=== PATIENT | female | born 1970 | race African-American/Black ===

== ENCOUNTER 2018-01-20 21:01 | Inpatient (IN) | payer OTHER ==
[2018-01-20 21:17] VITALS: BMI 39.1
--- NOTE | 2018-01-20 22:33 | HP ---
CIWA Score - CIWA Score Nausea/Vomitin Muscle Tremors: 3 Anxiety: 4-Mod. Anxious/Guarded Agitation: 1-Slight > Activity Paroxysmal Sweats: No Perspiration Orientation: 0-Oriented Tacttile Disturbances: 0-None Auditory Disturbances: 0-None Visual Disturbances: 0-None Headache: 3-Moderate CIWA-Ar Total Score: 13 Admission ROS S - HPI Chief Complaint: Alcohol withdrawal symptoms Allergies/Adverse Reactions: Allergies Allergy/AdvReac Type Severity Reaction Status Date / Time No Known Allergies Allergy Verified 01/21/18 00:15 History of Present Illness: 47 years old female with a long history of alcohol dependence, was sober for about 3 years and relapsed 2 years later is seeking admission to detox. Patient has been in Rehab. at [facility] but has never been to detox. This is her first detox. She has medical history of HTN, anemia, asthma, hypothyroidism , DM, Hypercholesterolemia and depression. She denies suicide attempt and suicidal ideation at this time. Exam Limitations: No Limitations - Ebola screening Have you traveled outside of the country in the last 21 days: No Have you had contact with anyone from an Ebola affected area: No Have you been sick,other than usual withdrawal symptoms: No Do you have a fever: No - Review of Systems Constitutional: Chills, Loss of Appetite, Malaise, Night Sweats, Changes in sleep EENT: reports: Other (uses reading glasses) Respiratory: reports: No Symptoms reported Cardiac: reports: No Symptoms Reported GI: reports: Nausea, Poor Appetite, Abdominal cramping : reports: No Symptoms Reported Musculoskeletal: reports: Back Pain, Muscle Pain, Muscle Weakness Integumentary: reports: Dryness, Flushing Neuro: reports: Tingling, Tremors Endocrine: reports: No Symptoms Reported Hematology: reports: No Symptoms Reported Psychiatric: reports: Orientated x3, Agitated, Anxious Other Systems: Reviewed and Negative Patient History - Patient Medical History Hx Anemia: Yes (Ferrous sulfate) Hx Asthma: Yes (Albuterol) Hx Chronic Obstructive Pulmonary Disease (COPD): No Hx Cancer: No Hx Cardiac Disorders: Yes (Heart Bypass 2014) Hx Congestive Heart Failure: No Hx Hypertension: Yes (Clonidine, amlodipine, Lisinopril, lasix) Hx Hypercholesterolemia: Yes (Lipitor) Hx Pacemaker: No HX Cerebrovascular Accident: No Hx Seizures: No Hx Dementia: No Hx Diabetes: Yes (Not on medication) Hx Gastrointestinal Disorders: Yes (GASTRIC BYPASS IN 2010) Hx Liver Disease: No Hx Genitourinary Disorders: No Hx Sexually Transmitted Disorders: No Hx Renal Disease (ESRD): No Hx Thyroid Disease: Yes (Hypothyroid- Not on medication) Hx Human Immunodeficiency Virus (HIV): No Hx Hepatitis C: No Hx Depression: Yes (ekaterina Cao) Hx Suicide Attempt: No (Denies suicidal ideation at this time) Hx Schizophrenia: No - Patient Surgical History Past Surgical History: Yes Hx Neurologic Surgery: No Hx Cataract Extraction: No Hx Cardiac Surgery: No Hx Lung Surgery: No Hx Breast Surgery: No Hx Breast Biopsy: No Hx Abdominal Surgery: Yes (s/p lap gastric bypass) Hx Appendectomy: No Hx Cholecystectomy: No Hx Genitourinary Surgery: No Hx Section: No Hx Orthopedic Surgery: Yes (acl of left 2004,archillis tendon in 2011) Hx Hysterectomy: No Other Surgical History: Heart Bypass 2014 Anesthesia Reaction: No - PPD History Previous Implant?: Yes Documented Results: Negative w/o proof Implanted On Prior [facility] Admission?: Yes Date: 07/09/13 PPD to be Administered?: Yes - Reproductive History Patient is a Female of Child Bearing Age (11 -55 yrs old): Yes Last Menstrual Period: 12/29/17 Patient : No - Smoking Cessation Smoking history: Current every day smoker Have you smoked in the past 12 months: Yes Aproximately how many cigarettes per day: 5 Cigars Per Day: 0 Hx Chewing Tobacco Use: No Initiated information on smoking cessation: Yes 'Breaking Loose' booklet given: 01/20/18 - Substance & Tx. History Hx Alcohol Use: Yes Hx Substance Use: Yes Substance Use Type: Cocaine, Marijuana Hx Substance Use Treatment: Yes ([place]) - Substances Abused Alcohol Route: Oral Frequency: Daily Amount used: VODKA - 2 pints, BEER - 2 x 6 packs Age of first use: 15 Date of Last Use: 01/20/18 Cocaine Route: Smoking Frequency: 3-6 times per week Amount used: $100 Age of first use: 15 Date of Last Use: 01/19/18 Marijuana/Hashish Route: Smoking Frequency: 1-2 times per week Amount used: $10 Age of first use: 15 Date of Last Use: 01/16/18 Family Disease History - Family Disease History Family Disease History: Diabetes: Father, Brother, Heart Disease: Father, Mother , Sister Admission Physical Exam [facility] - Vital Signs Vital Signs: Vital Signs - 24 hr 01/20/18 21:16 Temperature 99.1 F Pulse Rate 110 H Respiratory 18 Rate Blood Pressure 166/111 - Physical General Appearance: Yes: Moderate Distress, Tremorous, Irritable, Sweating, Anxious HEENTM: Yes: EOMI, Normal ENT Inspection, Normal Voice, KIRSTIN Respiratory: Yes: Lungs Clear, Normal Breath Sounds, No Respiratory Distress Neck: Yes: Supple Breast: Yes: Breast Exam Deferred Cardiology: Yes: Regular Rhythm, Regular Rate, Tachycardia Abdominal: Yes: Normal Bowel Sounds, Soft, Protuberent, Hernia Genitourinary: Yes: Within Normal Limits Back: Yes: Normal Inspection Musculoskeletal: Yes: Back pain, Muscle Pain, Muscle weakness Extremities: Yes: Tremors Neurological: Yes: Alert, Normal Mood/Affect Integumentary: Yes: Warm Lymphatic: Yes: Within Normal Limits - Diagnostic (1) Alcohol dependence with uncomplicated withdrawal Current Visit: Yes Status: Chronic (2) Cannabis dependence, uncomplicated Current Visit: Yes Status: Chronic (3) Hypothyroid Current Visit: Yes Status: Chronic Qualifiers: Hypothyroidism type: unspecified Qualified Code(s): E03.9 - Hypothyroidism , unspecified (4) Hypercholesteremia Current Visit: Yes Status: Chronic (5) Depression Current Visit: Yes Status: Chronic (6) Obesity Current Visit: Yes Status: Chronic (7) Anemia Current Visit: Yes Status: Acute (8) Asthma Current Visit: Yes Status: Chronic (9) Cocaine dependence Current Visit: Yes Status: Chronic (10) DM Diabetes mellitus type 2 Current Visit: Yes Status: Chronic (11) Essential hypertension Current Visit: Yes Status: Chronic (12) Nicotine dependence Current Visit: Yes Status: Chronic Cleared for Admission [facility] - Detox or Rehab [facility] Level of Care: Medically Managed Detox Regimen/Protocol: Librium [facility] Breath Alcohol Content Breath Alcohol Content: 0.043 Urine Pregancy Test - Result Urine Test Results: Negative- NO Line Present Urine Drug Screen - Results Drug Screen Negative: No Urine Drug Screen Results: THC-Marijuana, AZALIA-Cocaine
[2018-01-20] MEDS ORDERED: LOPERAMIDE HCL 2 MG CAPSULE PO PRN (22:53)
[2018-01-20] MEDS ORDERED: MAGNESIUM HYDROX 2400MG/30ML ORAL SUSPENSION 30 ML CUP PO PRN (22:53)
[2018-01-20] MEDS ORDERED: guaiFENesin/D-METHORPHAN HB 10 ML UNIT-DOSE CUPS PO PRN (22:53)
[2018-01-20] MEDS ORDERED: P-EPHED 60MG/TRIPROLIDI 2.5MG TABLET PO PRN (22:53)
[2018-01-20] MEDS ORDERED: MAGNESIUM CITRATE 300 ML BOTTLE PO PRN (22:53)
[2018-01-20] MEDS ORDERED: MAG HYDROX/AL HYDROX/SIMETH 30 ML UNIT-DOSE CUP PO PRN (22:53)
[2018-01-20] MEDS ORDERED: MENTHOL/PHENOL 1 EACH UD MM PRN (22:53)
[2018-01-20] MEDS ORDERED: chlordiazePOXIDE HCL 25 MG CAPSULE PO PRN (22:53)
[2018-01-20] MEDS ORDERED: ACETAMINOPHEN 325 MG TABLET (FP) PO PRN (22:53)
[2018-01-20] MEDS ORDERED: IBUPROFEN 400 MG TABLET (FP) PO PRN (22:53)
[2018-01-21] MEDS ORDERED: cloNIDine HCL 0.1 MG TABLET PO ONE ×2 (00:50→06:21)
[2018-01-21] MEDS: chlordiazePOXIDE HCL 25 MG CAPSULE PO SCH ×5 (01:07→22:16)
[2018-01-21 02:03] LABS: URINE APPEARANCE SLCLOUDY; URINE BILIRUBIN NEGATIVE (<2.0 mg/dL); URINE BLOOD NEGATIVE (NEGATIVE); URINE COLOR YELLOW; URINE GLUCOSE (UA) NEGATIVE (NEGATIVE); URINE KETONE NEGATIVE (NEGATIVE); URINE NITRITE NEGATIVE (NEGATIVE); URINE PROTEIN NEGATIVE (NEGATIVE)
[2018-01-21 02:56] LABS: URINE LEUK ESTERASE 2+ (NEGATIVE)
--- NOTE | 2018-01-21 03:29 | PN ---
[facility] Progress Note Note: Patient's blood pressure was B/P 195/115. Clonidine 0.1 mg oral given
[2018-01-21 03:31] LABS: EPI CELLS RARE /HPF (FEW); URINE BACTERIA RARE /hpf (NONE SEEN); URINE MUCUS RARE
--- NOTE | 2018-01-21 06:23 | PN ---
[facility] Progress Note Note: Patient's blood pressure this morning is B/P 157/101. Patient is asymptomatic and denies headache or discomfort. Clonidine 0.1mg tablet oral ordered.
[2018-01-21] MEDS: FERROUS SO4 325 MG TABLET (FP) PO SCH ×2 (07:34→20:17)
[2018-01-21] MEDS ORDERED: PATIENT'S OWN MEDICATION (NON-FORMULARY) (Amlodipine/Valsartan [Exforge 5-160 Mg Tablet] 1 PO SCH (10:00)
[2018-01-21 10:15] LABS: ALBUMIN 3.4 g/dl (3.4-5.0); ALK PHOS 74 U/L (45-117); ANION GAP 6 (8-16); BILIRUBIN,TOTAL 0.4 mg/dL (0.2-1.0); BLOOD UREA NITROGEN 9 mg/dL (7-18); CALCIUM 8.5 mg/dL (8.5-10.1); CHLORIDE 106 mmol/L (98-107); CO2 29 mmol/L (21-32); CREATININE 0.9 mg/dL (0.55-1.02); GLUCOSE,RANDOM 95 mg/dL (74-106); POTASSIUM 3.7 mmol/L (3.5-5.1); SGOT/AST 17 U/L (15-37); SGPT/ALT 17 U/L (12-78); SODIUM 141 mmol/L (136-145); TOT PROT 6.4 g/dl (6.4-8.2)
[2018-01-21] MEDS: PRENATAL VITAMINS W/ FOLIC ACID TABLET (FP) PO SCH (10:15)
[2018-01-21] MEDS: METOPROLOL TARTRATE 25 MG TABLET (FP) PO SCH ×2 (10:15→22:17)
[2018-01-21] MEDS: amLODIPine BESYLATE 5 MG TABLET (FP) PO SCH (10:15)
[2018-01-21] MEDS: FUROSEMIDE 20 MG TABLET (FP) PO SCH (10:16)
[2018-01-21] MEDS: VALSARTAN 160 MG TABLET (UD) PO SCH (10:16)
[2018-01-21] MEDS: NICOTINE 14 MG/24 HOURS TOPICAL PATCH TD SCH (10:16)
[2018-01-21] MEDS: NICOTINE POLACRILEX 2 MG GUM BC PRN (10:17)
--- NOTE | 2018-01-21 10:22 | CONSULT ---
[facility] Psychiatric Consult - Data Date of interview: 01/21/18 Admission source: [facility] Identifying data: This is 47 years old obese female, mother of two, living with family, unemployed, on PA, with multiple medical problems, with no psychiatric hospitalization history, long history of alcohol, Cocaine, Cannabis , Nicotine dependence, seeking admission to Detox. Substance Abuse History: Smoking history: Current every day smoker. Have you smoked in the past 12 months: Yes. Aproximately how many cigarettes per day: 5. Cigars Per Day: 0. Hx Chewing Tobacco Use: No. Initiated information on smoking cessation: Yes. 'Breaking Loose' booklet given: 01/20/18. - Substance & Tx. History. Hx Alcohol Use: Yes. Hx Substance Use: Yes. Substance Use Type : Cocaine, Marijuana. Hx Substance Use Treatment: Yes ([place], [place]). - Substances Abused. Alcohol. Route: Oral. Frequency: Daily. Amount used: VODKA - 2 pints, BEER - 2 x 6 packs. Age of first use: 15. Date of Last Use: 01/20/18. Cocaine. Route: Smoking. Frequency: 3-6 times per week. Amount used: $100. Age of first use: 15. Date of Last Use: 01/19/18. Marijuana/Hashish. Route: Smoking. Frequency: 1-2 times per week. Amount used : $10. Age of first use: 15. Date of Last Use: 01/16/18 Medical History: Patient has a medical history of HTN, anemia, asthma, hypothyroidism, DM-2, Hypercholesterolemia, Obesity, s/p gastric bypass, s/p angioplasty. Psychiatric History: Patient reports history of depression, reports no medications taking prior to admission, She denies suicide attempts history, and suicidal ideation at this time. Physical/Sexual Abuse/Trauma History: Denies Additional Comment: Observation. Detox Unit Care Protocol Mental Status Exam - Mental Status Exam Alert and Oriented to: Person Cognitive Function: Fair Patient Appearance: Unkempt Mood: Sad Affect: Flat Patient Behavior: Sedated Speech Pattern: Delayed Voice Loudness: Moderately Soft/Quiet Thought Process: Circumstantial Thought Disorder: Being Controlled Hallucinations: Denies Suicidal Ideation: Denies Homicidal Ideation: Denies Insight/Judgement: Fair Sleep: Difficulty falling asleep Appetite: Weight gain Muscle strength/Tone: Mild Hypertonicity Gait/Station: Shuffling Additional Comments: Observation. Detox Unit Care Protocol Psychiatric Findings - Problem List ([place] 1, 2,3) (1) Drug-induced mood disorder Current Visit: Yes Status: Acute (2) Alcohol dependence with uncomplicated withdrawal Current Visit: Yes Status: Chronic (3) Cannabis dependence, uncomplicated Current Visit: Yes Status: Chronic (4) Cocaine dependence Current Visit: Yes Status: Chronic (5) Depression Current Visit: Yes Status: Chronic (6) Nicotine dependence Current Visit: Yes Status: Chronic (7) s/p angioplasty with stent Current Visit: No Status: Active - Initial Treatment Plan Initial Treatment Plan: Observation. Detox Unit Care Protocol
[2018-01-21 10:31] LABS: HEMATOCRIT 31.4 % (32.4-45.2); HEMOGLOBIN 9.4 GM/dL (10.7-15.3); MCH 21.2 pg (25.7-33.7); MCHC 30.1 g/dl (32.0-36.0); MEAN CELL VOLUME 70.5 fl (80-96); MEAN PLT VOLUME 8.4 fl (7.5-11.1); PLATELET COUNT 307 K/MM3 (134-434); RBC 4.45 M/mm3 (3.60-5.2); RDW 19.1 % (11.6-15.6); WHITE BLOOD COUNT 5.7 K/mm3 (4.0-10.0)
[2018-01-21] MEDS: CYANOCOBALAMIN 1,000 MCG TABLET (FP) PO SCH (10:52)
--- NOTE | 2018-01-21 11:15 | PN ---
S CIWA - CIWA Score Nausea/Vomitin Muscle Tremors: 2 Anxiety: 2 Agitation: 2 Paroxysmal Sweats: 2 Orientation: 0-Oriented Tacttile Disturbances: 1-Very Mild Itch/Numbness Auditory Disturbances: 0-None Visual Disturbances: 0-None Headache: 1-Very Mild CIWA-Ar Total Score: 12 S Progress Note (SOAP) Subjective: nausea, sweats, interrupted sleep, anxiety, tremors Objective: 01/21/18 11:14 Vital Signs - 24 hr 01/20/18 01/21/18 01/21/18 21:16 01:09 03:30 Temperature 99.1 F 98.1 F Pulse Rate 110 H 107 H Respiratory 18 20 20 Rate Blood Pressure 166/111 195/115 01/21/18 01/21/18 06:43 10:00 Temperature 96.3 F L 97.9 F Pulse Rate 99 H 107 H Respiratory 20 18 Rate Blood Pressure 157/101 153/91 hypertension Laboratory Tests 01/20/18 01/21/18 01/21/18 23:54 07:30 07:30 WBC 5.7 D RBC 4.45 Hgb 9.4 L D Hct 31.4 L MCV 70.5 L MCH 21.2 L MCHC 30.1 L RDW 19.1 H Plt Count 307 MPV 8.4 Sodium 141 Potassium 3.7 Chloride 106 Carbon Dioxide 29 Anion Gap 6 L BUN 9 Creatinine 0.9 Creat Clearance w eGFR > 60 Random Glucose 95 Calcium 8.5 Total Bilirubin 0.4 D AST 17 ALT 17 Alkaline Phosphatase 74 Total Protein 6.4 Albumin 3.4 Urine Color Yellow Urine Appearance Slcloudy Urine pH 6.0 Ur Specific [place] 1.006 Urine Protein Negative Urine Glucose (UA) Negative Urine Ketones Negative Urine Blood Negative Urine Nitrite Negative Urine Bilirubin Negative Urine Urobilinogen 2.0 H Ur Leukocyte Esterase 2+ H D Urine WBC (Auto) 3 Urine RBC (Auto) <1 Ur Epithelial Cells Rare Urine Bacteria Rare Urine Mucus Rare microcytic anemia, hypoalbuminemia Assessment: 01/21/18 11:14 withdrawal sx - cont detox, fludis, encourge ambulation iron for micorcytic anemai ordered.
[2018-01-21] MEDS: cloNIDine HCL 0.1 MG TABLET PO SCH ×2 (12:26→22:16)
[2018-01-21] MEDS ORDERED: ALBUTEROL SO4 18 GM HFA INHALER IH ONE (12:53)
[2018-01-21] MEDS ORDERED: chlordiazePOXIDE HCL 25 MG CAPSULE PO ONE (13:00)
--- NOTE | 2018-01-21 13:01 | EKG ---
Test Reason : Blood Pressure : / mmHG Vent. Rate : 103 BPM Atrial Rate : 103 BPM P-R Int : 140 ms QRS Dur : 088 ms QT Int : 378 ms P-R-T Axes : 072 017 074 degrees QTc Int : 495 ms SINUS TACHYCARDIA POSSIBLE LEFT ATRIAL ENLARGEMENT NONSPECIFIC T WAVE ABNORMALITY ABNORMAL ECG NO PREVIOUS ECGS AVAILABLE Confirmed by MARK RILEY MD ([id number]) on 01/21/2018 1:00:48 PM Referred By: Confirmed By:MARK RILEY MD
[2018-01-21] MEDS ORDERED: FLU VACCINE QUAD 60 MCG/0.5 ML (MDV 17-18) IM ONE (15:15)
[2018-01-21] MEDS: THIAMINE HCL 100 MG TABLET (FP) PO SCH (22:17)
[2018-01-22] MEDS ORDERED: ALBUTEROL SO4 2.5/IPRATROPIUM 0.5 INH SOL 3 ML VIAL.NEB. NEB PRN (05:37)
[2018-01-22] MEDS: ALBUTEROL SO4 18 GM HFA INHALER IH PRN ×3 (06:14→16:59)
[2018-01-22] MEDS: chlordiazePOXIDE HCL 25 MG CAPSULE PO SCH ×3 (06:19→17:06)
[2018-01-22] MEDS: FERROUS SO4 325 MG TABLET (FP) PO SCH ×2 (08:04→17:45)
[2018-01-22] MEDS: CYANOCOBALAMIN 1,000 MCG TABLET (FP) PO SCH (10:47)
[2018-01-22] MEDS: METOPROLOL TARTRATE 25 MG TABLET (FP) PO SCH ×2 (10:47→22:06)
[2018-01-22] MEDS: PRENATAL VITAMINS W/ FOLIC ACID TABLET (FP) PO SCH (10:48)
[2018-01-22] MEDS: cloNIDine HCL 0.1 MG TABLET PO SCH ×2 (10:48→22:06)
[2018-01-22] MEDS: FUROSEMIDE 20 MG TABLET (FP) PO SCH (10:48)
[2018-01-22] MEDS: VALSARTAN 160 MG TABLET (UD) PO SCH (10:51)
[2018-01-22] MEDS: NICOTINE 14 MG/24 HOURS TOPICAL PATCH TD SCH (10:52)
[2018-01-22] MEDS: amLODIPine BESYLATE 5 MG TABLET (FP) PO SCH (10:52)
[2018-01-22] MEDS ORDERED: FLU VACCINE QUAD 60 MCG/0.5 ML (MDV 17-18) IM ONE (12:00)
--- NOTE | 2018-01-22 14:45 | PN ---
S CIWA - CIWA Score Nausea/Vomitin Muscle Tremors: 2 Anxiety: 2 Agitation: 2 Paroxysmal Sweats: 2 Orientation: 0-Oriented Tacttile Disturbances: 1-Very Mild Itch/Numbness Auditory Disturbances: 0-None Visual Disturbances: 0-None Headache: 1-Very Mild CIWA-Ar Total Score: 13 S Progress Note (SOAP) Subjective: nasuea, sweats, interrupted sleep, anxiety, tremros Objective: 01/22/18 14:45 Vital Signs - 24 hr 01/21/18 01/21/18 01/21/18 14:59 17:15 21:54 Temperature 97.7 F 98.2 F 97.7 F Pulse Rate 85 84 88 Respiratory 18 18 18 Rate Blood Pressure 133/86 134/83 159/68 01/22/18 01/22/18 01/22/18 00:30 03:30 06:00 Temperature 98.1 F Pulse Rate 89 Respiratory 18 18 22 Rate Blood Pressure 129/101 01/22/18 01/22/18 07:28 10:00 Temperature 97.9 F Pulse Rate 82 95 H Respiratory 20 20 Rate Blood Pressure 133/89 154/78 Laboratory Tests 01/20/18 01/21/18 01/21/18 23:54 07:30 07:30 WBC 5.7 D RBC 4.45 Hgb 9.4 L D Hct 31.4 L MCV 70.5 L MCH 21.2 L MCHC 30.1 L RDW 19.1 H Plt Count 307 MPV 8.4 Sodium 141 Potassium 3.7 Chloride 106 Carbon Dioxide 29 Anion Gap 6 L BUN 9 Creatinine 0.9 Creat Clearance w eGFR > 60 Random Glucose 95 Calcium 8.5 Total Bilirubin 0.4 D AST 17 ALT 17 Alkaline Phosphatase 74 Total Protein 6.4 Albumin 3.4 Urine Color Yellow Urine Appearance Slcloudy Urine pH 6.0 Ur Specific [place] 1.006 Urine Protein Negative Urine Glucose (UA) Negative Urine Ketones Negative Urine Blood Negative Urine Nitrite Negative Urine Bilirubin Negative Urine Urobilinogen 2.0 H Ur Leukocyte Esterase 2+ H D Urine WBC (Auto) 3 Urine RBC (Auto) <1 Ur Epithelial Cells Rare Urine Bacteria Rare Urine Mucus Rare RPR Titer HIV 1&2 Antibody Screen HIV P24 Antigen 01/21/18 01/22/18 08:50 07:00 WBC RBC Hgb Hct MCV MCH MCHC RDW Plt Count MPV Sodium Potassium Chloride Carbon Dioxide Anion Gap BUN Creatinine Creat Clearance w eGFR Random Glucose Calcium Total Bilirubin AST ALT Alkaline Phosphatase Total Protein Albumin Urine Color Urine Appearance Urine pH Ur Specific [place] Urine Protein Urine Glucose (UA) Urine Ketones Urine Blood Urine Nitrite Urine Bilirubin Urine Urobilinogen Ur Leukocyte Esterase Urine WBC (Auto) Urine RBC (Auto) Ur Epithelial Cells Urine Bacteria Urine Mucus RPR Titer Nonreactive HIV 1&2 Antibody Screen Negative HIV P24 Antigen Negative micorocytic nemia noted Assessment: 01/22/18 14:45 withdrawal sx - cont detox, iron supplement, fludis, encoruage ambuatltion
[2018-01-22] MEDS ORDERED: MONTELUKAST NA 10 MG TABLET PO ONE (15:20)
[2018-01-22] MEDS ORDERED: ALBUTEROL SO4 0.083% IH SOL 2.5 MG/3 ML VIAL.NEB. NEB PRN (15:30)
[2018-01-22] MEDS: TIOTROPIUM BROMIDE 18 MCG CAPSULES IH SCH (15:55)
[2018-01-22] MEDS ORDERED: predniSONE 20 MG TABLET (UD) PO ONE (16:45)
--- NOTE | 2018-01-22 16:49 | PN ---
[facility] Progress Note Note: called to see patient - no impiorvement in wheezing with nebulizer treatment, starte albouterol, spirivsa nd steroic inhaler. will give prednisons 60mg po x2 doses then 50mg daily and reassess after weekend for steroid taper. no sob, nad, cough +++ small smount ofputum, poor air entry with scattered wheeze. obese women/ If wheezing deteriorates trans Vital Signs - 24 hr 01/21/18 01/21/18 01/22/18 17:15 21:54 00:30 Temperature 98.2 F 97.7 F Pulse Rate 84 88 Respiratory 18 18 18 Rate Blood Pressure 134/83 159/68 01/22/18 01/22/18 01/22/18 03:30 06:00 07:28 Temperature 98.1 F Pulse Rate 89 82 Respiratory 18 22 20 Rate Blood Pressure 129/101 133/89 01/22/18 01/22/18 10:00 15:03 Temperature 97.9 F 97.9 F Pulse Rate 95 H 80 Respiratory 20 20 Rate Blood Pressure 154/78 132/58 Laboratory Tests 01/20/18 01/21/18 01/21/18 23:54 07:30 07:30 WBC 5.7 D RBC 4.45 Hgb 9.4 L D Hct 31.4 L MCV 70.5 L MCH 21.2 L MCHC 30.1 L RDW 19.1 H Plt Count 307 MPV 8.4 Sodium 141 Potassium 3.7 Chloride 106 Carbon Dioxide 29 Anion Gap 6 L BUN 9 Creatinine 0.9 Creat Clearance w eGFR > 60 Random Glucose 95 Calcium 8.5 Total Bilirubin 0.4 D AST 17 ALT 17 Alkaline Phosphatase 74 Total Protein 6.4 Albumin 3.4 Urine Color Yellow Urine Appearance Slcloudy Urine pH 6.0 Ur Specific [place] 1.006 Urine Protein Negative Urine Glucose (UA) Negative Urine Ketones Negative Urine Blood Negative Urine Nitrite Negative Urine Bilirubin Negative Urine Urobilinogen 2.0 H Ur Leukocyte Esterase 2+ H D Urine WBC (Auto) 3 Urine RBC (Auto) <1 Ur Epithelial Cells Rare Urine Bacteria Rare Urine Mucus Rare RPR Titer HIV 1&2 Antibody Screen HIV P24 Antigen 01/21/18 01/22/18 08:50 07:00 WBC RBC Hgb Hct MCV MCH MCHC RDW Plt Count MPV Sodium Potassium Chloride Carbon Dioxide Anion Gap BUN Creatinine Creat Clearance w eGFR Random Glucose Calcium Total Bilirubin AST ALT Alkaline Phosphatase Total Protein Albumin Urine Color Urine Appearance Urine pH Ur Specific [place] Urine Protein Urine Glucose (UA) Urine Ketones Urine Blood Urine Nitrite Urine Bilirubin Urine Urobilinogen Ur Leukocyte Esterase Urine WBC (Auto) Urine RBC (Auto) Ur Epithelial Cells Urine Bacteria Urine Mucus RPR Titer Nonreactive HIV 1&2 Antibody Screen Negative HIV P24 Antigen Negative richard to [facility] for treatment.
[2018-01-22] MEDS: FLUTICASONE/SALMETEROL 100 MCG/50 MCG DISKUS IH SCH (22:04)
[2018-01-22] MEDS: THIAMINE HCL 100 MG TABLET (FP) PO SCH (22:05)
[2018-01-22] MEDS: chlordiazePOXIDE 5 MG CAPSULE PO SCH (22:06)
[2018-01-22] MEDS: MELATONIN 5 MG TABLETS PO PRN (22:07)
[2018-01-23] MEDS: chlordiazePOXIDE 5 MG CAPSULE PO SCH ×3 (06:39→17:31)
[2018-01-23] MEDS: FERROUS SO4 325 MG TABLET (FP) PO SCH ×2 (08:28→17:31)
[2018-01-23] MEDS: CYANOCOBALAMIN 1,000 MCG TABLET (FP) PO SCH (10:13)
[2018-01-23] MEDS: METOPROLOL TARTRATE 25 MG TABLET (FP) PO SCH ×2 (10:13→22:36)
[2018-01-23] MEDS: cloNIDine HCL 0.1 MG TABLET PO SCH ×2 (10:13→22:36)
[2018-01-23] MEDS: amLODIPine BESYLATE 5 MG TABLET (FP) PO SCH (10:13)
[2018-01-23] MEDS: NICOTINE 14 MG/24 HOURS TOPICAL PATCH TD SCH (10:14)
[2018-01-23] MEDS: TIOTROPIUM BROMIDE 18 MCG CAPSULES IH SCH (10:14)
[2018-01-23] MEDS: VALSARTAN 160 MG TABLET (UD) PO SCH (10:14)
[2018-01-23] MEDS: FUROSEMIDE 20 MG TABLET (FP) PO SCH (10:14)
[2018-01-23] MEDS: PRENATAL VITAMINS W/ FOLIC ACID TABLET (FP) PO SCH (10:14)
[2018-01-23] MEDS: FLUTICASONE/SALMETEROL 100 MCG/50 MCG DISKUS IH SCH ×2 (10:14→22:35)
[2018-01-23] MEDS: NICOTINE POLACRILEX 2 MG GUM BC PRN (10:18)
--- NOTE | 2018-01-23 11:04 | PN ---
[facility] Progress Note (SOAP) Subjective: interrupted sleep Objective: 01/23/18 11:03 Vital Signs Temperature 97.7 F 01/23/18 06:00 Pulse Rate 74 01/23/18 06:00 Respiratory Rate 20 01/23/18 06:00 Blood Pressure 101/61 01/23/18 06:00 O2 Sat by Pulse Oximetry (%) Laboratory Tests 01/20/18 01/21/18 01/21/18 23:54 07:30 07:30 WBC 5.7 D RBC 4.45 Hgb 9.4 L D Hct 31.4 L MCV 70.5 L MCH 21.2 L MCHC 30.1 L RDW 19.1 H Plt Count 307 MPV 8.4 Sodium 141 Potassium 3.7 Chloride 106 Carbon Dioxide 29 Anion Gap 6 L BUN 9 Creatinine 0.9 Creat Clearance w eGFR > 60 Random Glucose 95 Calcium 8.5 Total Bilirubin 0.4 D AST 17 ALT 17 Alkaline Phosphatase 74 Total Protein 6.4 Albumin 3.4 Urine Color Yellow Urine Appearance Slcloudy Urine pH 6.0 Ur Specific [place] 1.006 Urine Protein Negative Urine Glucose (UA) Negative Urine Ketones Negative Urine Blood Negative Urine Nitrite Negative Urine Bilirubin Negative Urine Urobilinogen 2.0 H Ur Leukocyte Esterase 2+ H D Urine WBC (Auto) 3 Urine RBC (Auto) <1 Ur Epithelial Cells Rare Urine Bacteria Rare Urine Mucus Rare RPR Titer HIV 1&2 Antibody Screen HIV P24 Antigen 01/21/18 01/22/18 08:50 07:00 WBC RBC Hgb Hct MCV MCH MCHC RDW Plt Count MPV Sodium Potassium Chloride Carbon Dioxide Anion Gap BUN Creatinine Creat Clearance w eGFR Random Glucose Calcium Total Bilirubin AST ALT Alkaline Phosphatase Total Protein Albumin Urine Color Urine Appearance Urine pH Ur Specific [place] Urine Protein Urine Glucose (UA) Urine Ketones Urine Blood Urine Nitrite Urine Bilirubin Urine Urobilinogen Ur Leukocyte Esterase Urine WBC (Auto) Urine RBC (Auto) Ur Epithelial Cells Urine Bacteria Urine Mucus RPR Titer Nonreactive HIV 1&2 Antibody Screen Negative HIV P24 Antigen Negative pt aox3 in nad ambulating Assessment: 01/23/18 11:03 withdrawal sx's Plan: cont. detox increase fluids d/c in am
[2018-01-23] MEDS ORDERED: predniSONE 20 MG TABLET (UD) PO ONE (16:45)
[2018-01-23] MEDS: ALBUTEROL SO4 18 GM HFA INHALER IH PRN ×2 (17:33→22:38)
[2018-01-23] MEDS ORDERED: MONTELUKAST NA 10 MG TABLET PO SCH (22:00)
[2018-01-23] MEDS: THIAMINE HCL 100 MG TABLET (FP) PO SCH (22:36)
[2018-01-23] MEDS: chlordiazePOXIDE HCL 10 MG CAPSULE PO SCH (22:36)
[2018-01-23] MEDS: MELATONIN 5 MG TABLETS PO PRN (22:36)
[2018-01-24] MEDS: chlordiazePOXIDE HCL 10 MG CAPSULE PO SCH (06:37)
[2018-01-24 06:56] VITALS: BP 136/86; PULSE 84; TEMP 96.2
[2018-01-24] MEDS: FERROUS SO4 325 MG TABLET (FP) PO SCH (07:54)
[2018-01-24] MEDS ORDERED: predniSONE 20 MG TABLET (UD) PO SCH (10:00)
[2018-01-24] MEDS: PRENATAL VITAMINS W/ FOLIC ACID TABLET (FP) PO SCH (10:19)
[2018-01-24] MEDS: FUROSEMIDE 20 MG TABLET (FP) PO SCH (10:19)
[2018-01-24] MEDS: VALSARTAN 160 MG TABLET (UD) PO SCH (10:20)
[2018-01-24] MEDS: METOPROLOL TARTRATE 25 MG TABLET (FP) PO SCH (10:20)
[2018-01-24] MEDS: cloNIDine HCL 0.1 MG TABLET PO SCH (10:21)
[2018-01-24] MEDS: FLUTICASONE/SALMETEROL 100 MCG/50 MCG DISKUS IH SCH (10:23)
[2018-01-24] MEDS: amLODIPine BESYLATE 5 MG TABLET (FP) PO SCH (10:23)
[2018-01-24] MEDS: NICOTINE 14 MG/24 HOURS TOPICAL PATCH TD SCH (10:23)
--- NOTE | 2018-01-24 10:35 | PN ---
S Progress Note (SOAP) Subjective: ALERT,NO COMPLAINT Objective: 01/24/18 10:33 Vital Signs Temperature 96.2 F L 01/24/18 06:56 Pulse Rate 84 01/24/18 06:56 Respiratory Rate 18 01/24/18 06:56 Blood Pressure 136/86 01/24/18 06:56 O2 Sat by Pulse Oximetry (%) Assessment: 01/24/18 10:33 DETOX COMPLETED,NO WITHDRAWAL SYMPTOM Plan: DISCHARGE TODAY,FOLLOW UP WITH AFTER CARE PROGRAM ARRANGEMENT
--- NOTE | 2018-01-24 10:41 | DS ---
[facility] Detox Discharge Summary Admission Date: 01/20/18 Discharge Date: 01/24/18 - History Present History: Alcohol Dependence, Cannabis Dependence, Cocaine Dependence Additional Comments: FOLLOW UP WITH AFTER CARE PROGRAM ARRANGEMENT Pertinent Past History: HYPOTHYROIDISM HYPERTENSION TYPE 2 DM NICOTINE DEPENDENCE HYPERCHOLESTEROLEMIA OBESITY - Physical Exam Results Vital Signs: Vital Signs Temperature 96.2 F L 01/24/18 06:56 Pulse Rate 84 01/24/18 06:56 Respiratory Rate 18 01/24/18 06:56 Blood Pressure 136/86 01/24/18 06:56 O2 Sat by Pulse Oximetry (%) Pertinent Admission Physical Exam Findings: WITHDRAWAL SIGNS AND SYMPTOM Vital Signs Temperature 96.2 F L 01/24/18 06:56 Pulse Rate 84 01/24/18 06:56 Respiratory Rate 18 01/24/18 06:56 Blood Pressure 136/86 01/24/18 06:56 O2 Sat by Pulse Oximetry (%) Laboratory Last Values WBC 5.7 K/mm3 (4.0-10.0) D 01/21/18 07:30 RBC 4.45 M/mm3 (3.60-5.2) 01/21/18 07:30 Hgb 9.4 GM/dL (10.7-15.3) L D 01/21/18 07:30 Hct 31.4 % (32.4-45.2) L 01/21/18 07:30 MCV 70.5 fl (80-96) L 01/21/18 07:30 MCH 21.2 pg (25.7-33.7) L 01/21/18 07:30 MCHC 30.1 g/dl (32.0-36.0) L 01/21/18 07:30 RDW 19.1 % (11.6-15.6) H 01/21/18 07:30 Plt Count 307 K/MM3 (134-434) 01/21/18 07:30 MPV 8.4 fl (7.5-11.1) 01/21/18 07:30 Sodium 141 mmol/L (136-145) 01/21/18 07:30 Potassium 3.7 mmol/L (3.5-5.1) 01/21/18 07:30 Chloride 106 mmol/L (98-107) 01/21/18 07:30 Carbon Dioxide 29 mmol/L (21-32) 01/21/18 07:30 Anion Gap 6 (8-16) L 01/21/18 07:30 BUN 9 mg/dL (7-18) 01/21/18 07:30 Creatinine 0.9 mg/dL (0.55-1.02) 01/21/18 07:30 Creat Clearance w eGFR > 60 (>60) 01/21/18 07:30 Random Glucose 95 mg/dL (74-106) 01/21/18 07:30 Calcium 8.5 mg/dL (8.5-10.1) 01/21/18 07:30 Total Bilirubin 0.4 mg/dL (0.2-1.0) D 01/21/18 07:30 AST 17 U/L (15-37) 01/21/18 07:30 ALT 17 U/L (12-78) 01/21/18 07:30 Alkaline Phosphatase 74 U/L (45-117) 01/21/18 07:30 Total Protein 6.4 g/dl (6.4-8.2) 01/21/18 07:30 Albumin 3.4 g/dl (3.4-5.0) 01/21/18 07:30 Urine Color Yellow 01/20/18 23:54 Urine Appearance Slcloudy 01/20/18 23:54 Urine pH 6.0 (5.0-8.0) 01/20/18 23:54 Ur Specific [place] 1.006 (1.001-1.035) 01/20/18 23:54 Urine Protein Negative (NEGATIVE) 01/20/18 23:54 Urine Glucose (UA) Negative (NEGATIVE) 01/20/18 23:54 Urine Ketones Negative (NEGATIVE) 01/20/18 23:54 Urine Blood Negative (NEGATIVE) 01/20/18 23:54 Urine Nitrite Negative (NEGATIVE) 01/20/18 23:54 Urine Bilirubin Negative (<2.0 mg/dL) 01/20/18 23:54 Urine Urobilinogen 2.0 mg/dL (0.2-1.0) H 01/20/18 23:54 Ur Leukocyte Esterase 2+ (NEGATIVE) H D 01/20/18 23:54 Urine WBC (Auto) 3 /hpf (3-5) 01/20/18 23:54 Urine RBC (Auto) <1 /hpf (0-3) 01/20/18 23:54 Ur Epithelial Cells Rare /HPF (FEW) 01/20/18 23:54 Urine Bacteria Rare /hpf (NONE SEEN) 01/20/18 23:54 Urine Mucus Rare 01/20/18 23:54 RPR Titer Nonreactive (NONREACTIVE) 01/21/18 08:50 HIV 1&2 Antibody Screen Negative 01/22/18 07:00 HIV P24 Antigen Negative 01/22/18 07:00 - Treatment Hospital Course: Detox Protocol Followed, Detoxed Safely, Responded well, Discharged Condition Good Patient has Accepted a Rehab Referral to: DECLINED - Medication Discharge Medications: Ambulatory Orders Lasix 20 mg PO DAILY 10/31/11 Metoprolol Tartrate 25 mg PO BID 10/31/11 Cyanocobalamin (Vitamin B-12) [Cyanocobalamin] 1,000 mcg PO DAILY 11/07/11 Ferrous Sulfate [Feosol] 325 mg PO BID@0800,1800 11/07/11 Albuterol Sulfate Inhaler - [Ventolin HFA Inhaler -] 2 puff IH Q4H PRN #1 inhaler 01/23/18 Ferrous Sulfate [Feosol] 325 mg PO BID@0800,1800 #60 ud 01/23/18 Furosemide [Lasix -] 20 mg PO DAILY #30 tablet 01/23/18 Melatonin 5 mg PO HS PRN #30 tab 01/23/18 Metoprolol Tartrate [Lopressor -] 25 mg PO BID #60 tablet 01/23/18 Montelukast Na [Singulair -] 10 mg PO HS #30 tablet 01/23/18 Telmisartan/Amlodipine [Telmisartan-Amlodipine 40-5 mg] 1 each PO DAILY 30 Days #30 tablet 01/23/18 Tiotropium [place] [Spiriva] 1 puff IH DAILY #30 cap 01/23/18 predniSONE [Deltasone -] 5 mg PO DAILY 30 Days #100 tablet 01/23/18 - Diagnosis (1) Alcohol dependence with uncomplicated withdrawal Current Visit: Yes Status: Chronic (2) Asthma Current Visit: Yes Status: Chronic (3) Cannabis dependence, uncomplicated Current Visit: Yes Status: Chronic (4) Cocaine dependence Current Visit: Yes Status: Chronic (5) DM Diabetes mellitus type 2 Current Visit: Yes Status: Chronic (6) Essential hypertension Current Visit: Yes Status: Chronic (7) Hypercholesteremia Current Visit: Yes Status: Chronic (8) Hypothyroid Current Visit: Yes Status: Chronic Qualifiers: Hypothyroidism type: unspecified Qualified Code(s): E03.9 - Hypothyroidism , unspecified (9) Nicotine dependence Current Visit: Yes Status: Chronic Qualifiers: Nicotine product type: cigarettes Substance use status: uncomplicated Qualified Code(s): F17.210 - Nicotine dependence, cigarettes, uncomplicated (10) Obesity Current Visit: Yes Status: Chronic (11) Low back pain Current Visit: No Status: Active (12) s/p angioplasty with stent Current Visit: No Status: Active (13) s/p lap gastric bypass Current Visit: No Status: Active - AMA Did Patient Leave Against Medical Advice: No
== END 2018-01-24 10:26 | disposition home or self-care (01) | DRG 774 ==
LOC: YASAS 21:01 → Y6N 23:11
PROVIDERS: ADMIT Internal Medicine; ATTEND Internal Medicine
PROC: HZ2ZZZZ Detoxification Services for Substance Abuse Treatment (ICD-10-PCS; principal; 2018-01-20)
DX: F10.230 Alcohol dependence with withdrawal, uncomplicated (principal); F14.20 Cocaine dependence, uncomplicated; F12.20 Cannabis dependence, uncomplicated; F17.210 Nicotine dependence, cigarettes, uncomplicated; F32.9 Major depressive disorder, single episode, unspecified; I10 Essential (primary) hypertension; E03.9 Hypothyroidism, unspecified; E11.9 Type 2 diabetes mellitus without complications; M54.5 Low back pain; I25.10 Atherosclerotic heart disease of native coronary artery without angina pectoris; Z95.1 Presence of aortocoronary bypass graft; Z95.5 Presence of coronary angioplasty implant and graft; D50.8 Other iron deficiency anemias; J45.909 Unspecified asthma, uncomplicated; E66.09 Other obesity due to excess calories; Z68.39 Body mass index [BMI] 39.0-39.9, adult
CPT/HCPCS: 36415; 80053; 81003; 81015; 85027; 86593; 87389; 90688; 93005; 93010; 94640; J0735

== ENCOUNTER 2018-03-07 21:44 | Emergency (ER) | payer OTHER ==
[2018-03-07 21:58] VITALS: BP 175/116; PULSE 82; TEMP 97.8; BMI 39.9
[2018-03-07] MEDS ORDERED: methylPREDNISolone NA SUCC 125 MG/2 ML VIAL IVPB ONE (22:35)
[2018-03-07] MEDS ORDERED: ALBUTEROL SO4 2.5/IPRATROPIUM 0.5 INH SOL 3 ML VIAL.NEB. NEB ONE ×3 (22:35→23:52)
--- NOTE | 2018-03-07 22:35 | PDOC ---
History of Present Illness - General History Source: Patient, Old Records Exam Limitations: No Limitations - History of Present Illness Initial Comments: 03/07/18 22:54 The patient is a 47 year old female with a past medical history of asthma, hypothyroidism, hypertension, type 2 DM, nicotine dependence, marijuana dependence, cocaine dependence, EtOH dependence, hypercholesterolemia, and obesity (s/p gastric bypass) who presents to the emergency department with shortness of breath for 4 days. The patient reports that she has taken albuterol to treat her symptoms with no relief. She endorses associated productive cough with white sputum, chills, and headache. She denies lightheadedness and diarrhea. She denies being hospitalized in the past for her asthma. She denies any history of intubation. 03/08/18 01:08 <Reji Saenz - Last Filed: 03/08/18 01:08> - General History Source: Patient Exam Limitations: No Limitations <Floresita gAuilar - Last Filed: 03/08/18 02:10> - General Chief Complaint: Cold Symptoms Stated Complaint: ASTHMA Time Seen by Provider: 03/07/18 22:11 Past History <Reji Saenz - Last Filed: 03/08/18 01:08> - Past Medical History Anemia: Yes (Ferrous sulfate) Asthma: Yes (Albuterol) Cancer: No Cardiac Disorders: Yes (Heart Bypass 2014) CVA: No COPD: No CHF: No Dementia: No Diabetes: Yes (Not on medication) GI Disorders: Yes (GASTRIC BYPASS IN 2010) Disorders: No HTN: Yes (Clonidine, amlodipine, Lisinopril, lasix) Hypercholesterolemia: Yes (Lipitor) Kidney Stones: No Liver Disease: No Seizures: No Thyroid Disease: Yes (Hypothyroid- Not on medication) - Surgical History Abdominal Surgery: Yes (s/p lap gastric bypass) Appendectomy: No Cardiac Surgery: No Cholecystectomy: No Lung Surgery: No Neurologic Surgery: No Orthopedic Surgery: Yes (acl of left 2005,archillis tendon in 2011) - Reproductive History PID: No - Suicide/Smoking/Psychosocial Hx Smoking History: Never smoked Have you smoked in the past 12 months: No Number of Cigarettes Smoked Daily: 5 If you are a former smoker, when did you quit?: 07/05/13 Cigars Per Day: 0 Information on smoking cessation initiated: No 'Breaking Loose' booklet given: 01/20/18 Hx Alcohol Use: No Drug/Substance Use Hx: No Substance Use Type: Cocaine, Marijuana Hx Substance Use Treatment: Yes ([place], [place]) <Floresita Aguilar - Last Filed: 03/08/18 02:10> - Past Medical History Allergies/Adverse Reactions: Allergies Allergy/AdvReac Type Severity Reaction Status Date / Time No Known Allergies Allergy Verified 03/07/18 21:58 Home Medications: Ambulatory Orders Lasix 20 mg PO DAILY 10/31/11 Metoprolol Tartrate 25 mg PO BID 10/31/11 Cyanocobalamin (Vitamin B-12) [Cyanocobalamin] 1,000 mcg PO DAILY 11/07/11 Ferrous Sulfate [Feosol] 325 mg PO BID@0800,1800 11/07/11 Albuterol Sulfate Inhaler - [Ventolin HFA Inhaler -] 2 puff IH Q4H PRN #1 inhaler 01/23/18 Ferrous Sulfate [Feosol] 325 mg PO BID@0800,1800 #60 ud 01/23/18 Furosemide [Lasix -] 20 mg PO DAILY #30 tablet 01/23/18 Melatonin 5 mg PO HS PRN #30 tab 01/23/18 Metoprolol Tartrate [Lopressor -] 25 mg PO BID #60 tablet 01/23/18 Montelukast Na [Singulair -] 10 mg PO HS #30 tablet 01/23/18 Telmisartan/Amlodipine [Telmisartan-Amlodipine 40-5 mg] 1 each PO DAILY 30 Days #30 tablet 01/23/18 Tiotropium [place] [Spiriva] 1 puff IH DAILY #30 cap 01/23/18 predniSONE [Deltasone -] 5 mg PO DAILY 30 Days #100 tablet 01/23/18 Albuterol 0.083% Nebulizer Maryanne [Ventolin 0.083% Nebulizer Soln -] 1 neb NEB Q6H #30 vial 03/08/18 Albuterol 2.5/Ipratropium 0.5 [Duoneb -] 1 amp NEB DAILY PRN #30 amp 03/08/18 Benzonatate [Tessalon Pearls -] 100 mg PO TID PRN #21 capsule 03/08/18 Guaifenesin [Mucinex -] 600 mg PO BID #14 tablet.er 03/08/18 Ipratropium [place] [Atrovent Hfa] 12.9 gm IH TID PRN #1 hfa.aer.ad 03/08/18 Nebulizer [Aeroeclipse II] 1 each MC ASDIR PRN #1 each 03/08/18 predniSONE [Deltasone -] 60 mg PO DAILY #12 tablet 03/08/18 Review of Systems - Review of Systems Able to Perform ROS?: Yes Comments:: 03/07/18 22:54 GENERAL/CONSTITUTIONAL: No: fever, chills, weakness, loss of appetite. HEAD, EYES, EARS, NOSE AND THROAT: No: change in vision, ear pain, discharge, sore throat, throat swelling. CARDIOVASCULAR: No: chest pain, lightheadedness, palpitations, syncope RESPIRATORY: (+) Shortness of breath No: cough, wheezing, hemoptysis, stridor. GASTROINTESTINAL: No: nausea, vomiting, abdominal cramping, diarrhea, rectal bleeding, constipation. GENITOURINARY: No: dysuria, hematuria, frequency, urgency, flank pain. MUSCULOSKELETAL: No: back pain, neck pain, joint pain, muscle swelling or pain SKIN: No: lesions, pallor, rash or easy bruising. NEUROLOGIC: No: headache, vertigo, paresthesias, weakness ENDOCRINE: No: unexplained weight gain or loss HEMATOLOGIC/LYMPHATIC: No: anemia, easy bleeding, swelling nodes <Reji Saenz - Last Filed: 03/08/18 01:08> *Physical Exam - Vital Signs Last Vital Signs Temp Pulse Resp BP Pulse Ox 97.8 F 82 16 175/116 98 03/07/18 21:54 03/07/18 21:54 03/07/18 21:54 03/07/18 21:54 03/07/18 21:54 - Physical Exam Comments: 03/07/18 22:55 GENERAL: The patient is in no acute distress. HEAD: Normal with no signs of trauma. EYES: PERRLA, EOMI, sclera anicteric, conjunctiva clear. ENT: Ears normal, nares patent, oropharynx clear without exudates. Moist mucous membranes. NECK: Normal range of motion, supple without lymphadenopathy, JVD, or masses. LUNGS: (+) Using accessory respiratory muscles to breathe. Wheezes bilaterally HEART:Regular rate and rhythm, normal S1 and S2 without murmur, rub or gallop. ABDOMEN: Soft, nontender, normoactive bowel sounds. No guarding, no rebound. EXTREMITIES: Normal range of motion, no edema. No clubbing or cyanosis. No erythema, or tenderness. NEUROLOGICAL: Cranial nerves II through XII grossly intact. Normal speech. No focal neurological deficits. MUSCULOSKELETAL: Back nontender to palpation, no CVA tenderness SKIN: Warm, Dry, normal turgor, no rashes or lesions noted. <Reji Saenz - Last Filed: 03/08/18 01:08> - Vital Signs Last Vital Signs Temp Pulse Resp BP Pulse Ox 97.8 F 82 16 175/116 98 03/07/18 21:54 03/07/18 21:54 03/07/18 21:54 03/07/18 21:54 03/07/18 21:54 <Floresita Aguilar - Last Filed: 03/08/18 02:10> ED Treatment Course - LABORATORY CBC & Chemistry Diagram: 03/07/18 23:38 03/07/18 23:38 <Reji Saenz - Last Filed: 03/08/18 01:08> - LABORATORY CBC & Chemistry Diagram: 03/07/18 23:38 03/07/18 23:38 <Floresita Aguilar - Last Filed: 03/08/18 02:10> Medical Decision Making - Medical Decision Making 03/08/18 00:16 Ms Watson is a 47 year old F w/ a h/o asthma, hypothyroidism, hypertension, NIIDM, nicotine dependence, marijuana dependence, cocaine dependence, EtOH dependence, hypercholesterolemia, and obesity (s/p gastric bypass). She presents to the ER with a complaint of shortness of breath and wheezing x 4 days. (+) cough (+) white sputum Pt has been using her albuterol MDI with little relief, last used in the waiting area She denies lightheadedness and diarrhea. She denies being hospitalized in the past for her asthma. She denies any history of intubation. Laboratory Tests 03/07/18 23:38 WBC 5.3 Hgb 9.7 L Hct 31.4 L Plt Count 276 Continues to wheeze Will give an additional duoneb CXR still pending 03/08/18 00:54 Peak flow, 225 03/08/18 02:08 Peak flow 450 Pt breathing improved Wheezing decreased Pt comfortable going home Follow up with pulmonary Clinical Impression: Asthma exacerbation, initial presentation ?COPD exacerbation, initial presentation <Floresita Aguilar - Last Filed: 03/08/18 02:10> *DC/Admit/Observation/Transfer - Attestations Scribe Attestion: 03/07/18 22:55 Documentation prepared by Reji Saenz, acting as medical coordinator pesticide use for Floresita Aguilar MD. <Reji Saenz - Last Filed: 03/08/18 01:08> - Discharge Dispostion Decision to Admit order: No <Floresita Aguilar - Last Filed: 03/08/18 02:10> Diagnosis at time of Disposition: Asthma Upper respiratory infection Qualifiers: URI type: unspecified viral URI Qualified Code(s): J06.9 - Acute upper respiratory infection, unspecified - Discharge Dispostion Disposition: HOME Condition at time of disposition: Stable - Prescriptions Prescriptions: Albuterol 0.083% Nebulizer Maryanne [Ventolin 0.083% Nebulizer Soln -] 1 neb NEB Q6H #30 vial Albuterol 2.5/Ipratropium 0.5 [Duoneb -] 1 amp NEB DAILY PRN #30 amp PRN Reason: Wheezing Benzonatate [Tessalon Pearls -] 100 mg PO TID PRN #21 capsule PRN Reason: Cough Guaifenesin [Mucinex -] 600 mg PO BID #14 tablet.er Ipratropium [place] [Atrovent Hfa] 12.9 gm IH TID PRN #1 hfa.aer.ad PRN Reason: Wheezing Nebulizer [Aeroeclipse II] 1 each MC ASDIR PRN #1 each PRN Reason: Wheezing predniSONE [Deltasone -] 60 mg PO DAILY #12 tablet - Referrals Referrals: Katharine Matthews [Primary Care Provider] - Mendez Chinchilla MD [Staff Physician] - - Patient Instructions Printed Discharge Instructions: DI for Acute Bronchitis, DI for Viral Upper Respiratory Infection -- Adult, DI for Asthma -- Adult Additional Instructions: Ms Watson Thank you for your patience Today you were seen for an exacerbation of your asthma. After given a nebulizer treatment your symptoms improve. If you need a refill of your asthma medications and I havent provided you with one please let me know so I can have it waiting for you at your pharmacy. Use your at home medications as originally directed by your primary care provider. Follow up with your primary cares office, or the referral we've provided you within 24 hours to inform them of todays visit and to see if they would like to/ need to see you. If you develop any new or worsening symptoms, or any fevers that cant be controlled with Tylenol or Motrin go directly to the emergency room. - Post Discharge Activity Forms/Work/School Notes: Back to Work
[2018-03-07] MEDS ORDERED: methylPREDNISolone NA SUCC 125 MG/2 ML VIAL ONE (22:56)
[2018-03-07 23:46] LABS: BASO % 1.5 % (0-2.0); EOS % 2.3 % (0-4.5); HEMATOCRIT 31.4 % (32.4-45.2); HEMOGLOBIN 9.7 GM/dL (10.7-15.3); LYMPH % 32.5 % (8-40); MCH 21.6 pg (25.7-33.7); MEAN CELL VOLUME 69.9 fl (80-96); MEAN PLT VOLUME 8.4 fl (7.5-11.1); MONO % 14.2 % (3.8-10.2); NEUT % 49.5 % (42.8-82.8); PLATELET COUNT 276 K/MM3 (134-434); RDW 18.6 % (11.6-15.6); WHITE BLOOD COUNT 5.3 K/mm3 (4.0-10.0)
[2018-03-08] MEDS ORDERED: ALBUTEROL SO4 2.5/IPRATROPIUM 0.5 INH SOL 3 ML VIAL.NEB. NEB ONE (00:17)
[2018-03-08 00:21] LABS: ALBUMIN 3.6 g/dl (3.4-5.0); ANION GAP 11 (8-16); BILIRUBIN,TOTAL 0.3 mg/dL (0.2-1.0); BLOOD UREA NITROGEN 10 mg/dL (7-18); CALCIUM 8.2 mg/dL (8.5-10.1); CHLORIDE 106 mmol/L (98-107); CO2 25 mmol/L (21-32); CREATININE 0.9 mg/dL (0.55-1.02); GLUCOSE,RANDOM 149 mg/dL (74-106); POTASSIUM 4.1 mmol/L (3.5-5.1); SGOT/AST 19 U/L (15-37); SGPT/ALT 15 U/L (12-78); SODIUM 142 mmol/L (136-145); TOT PROT 6.7 g/dl (6.4-8.2)
[2018-03-08 00:22] LABS: ALK PHOS 90 U/L (45-117)
[2018-03-08] MEDS ORDERED: AZITHROMYCIN 250 MG TABLET PO ONE (02:01)
[2018-03-08] MEDS ORDERED: AZITHROMYCIN 250 MG TABLET ONE (02:13)
== END 2018-03-08 02:16 | disposition home or self-care (01) ==
LOC: JER 21:44
PROC: 3E0F7GC Introduction of Other Therapeutic Substance into Respiratory Tract, Via Natural or Artificial Opening (ICD-10-PCS; principal; 2018-03-07)
PROC: 3E0F7GC Introduction of Other Therapeutic Substance into Respiratory Tract, Via Natural or Artificial Opening (ICD-10-PCS; 2018-03-07)
DX: J45.901 Unspecified asthma with (acute) exacerbation (principal); I25.10 Atherosclerotic heart disease of native coronary artery without angina pectoris; I10 Essential (primary) hypertension; F17.210 Nicotine dependence, cigarettes, uncomplicated; Z95.1 Presence of aortocoronary bypass graft; E11.9 Type 2 diabetes mellitus without complications; E78.00 Pure hypercholesterolemia, unspecified; E03.9 Hypothyroidism, unspecified; D64.9 Anemia, unspecified; Z98.84 Bariatric surgery status
CPT/HCPCS: 36415; 71046-TC-FY; 80053; 84703; 85025; 94640; 96374; 99281-25; J7620